=== PATIENT | male | born 1960 | race Caucasian/White ===

== ENCOUNTER 2019-10-29 18:17 | Observation (INO) | payer BC ==
[~2019-10-29] VITALS: Ht 170.2 cm; Wt 99.0 kg
[2019-10-29] MEDS ORDERED: ASPIRIN 81 MG CHEW TAB PO ONE (19:00)
[2019-10-29 19:08] LABS: BASOPHILS % 0.3 % (0.0-1.0); EOSINOPHILS # (AUTO) 0.1 (0.0-0.4); EOSINOPHILS % 0.5 % (0.0-6.0); HEMATOCRIT 44.4 % (38.2-49.6); HEMOGLOBIN 15.1 g/dL (14.0-18.0); LYMPHOCYTES % 21.4 % (18.0-39.1); MEAN CORPUSCULAR HEMOGLOBIN 29.5 pg (28-32); MEAN CORPUSCULAR VOLUME 86.7 fL (81-99); MONOCYTES % 10.6 % (4.4-11.3); NEUTROPHILS # (AUTO) 6.3 (2.1-6.9); NEUTROPHILS % 66.7 % (38.7-80.0); PLATELET COUNT 196 x10e3/uL (140-360); RED BLOOD COUNT 5.12 x10e6/uL (4.3-5.7); RED CELL DISTRIBUTION WIDTH 13.5 % (11.7-14.4)
[2019-10-29 19:21] LABS: ALANINE AMINOTRANSFERASE 37 IU/L (0-55); ALBUMIN 4.1 g/dL (3.5-5.0); ALBUMIN/GLOBULIN RATIO 1.5 (0.8-2.0); ALKALINE PHOSPHATASE 59 IU/L (40-150); ANION GAP 14.8 mmol/L (8-16); BLOOD UREA NITROGEN 16 mg/dL (7-26); BUN/CREATININE RATIO 14 (6-25); CALCIUM 8.9 mg/dL (8.4-10.2); CARBON DIOXIDE 22 mmol/L (22-29); CHLORIDE 107 mmol/L (98-107); CREATINE KINASE 155 IU/L (30-200); CREATININE, SERUM 1.12 mg/dL (0.72-1.25); EST GLOMERULAR FILTRATION RATE > 60 ML/MIN (60-); GLUCOSE 84 mg/dL (74-118); POTASSIUM 3.8 mmol/L (3.5-5.1); SODIUM 140 mmol/L (136-145)
[2019-10-29 19:22] LABS: INR 0.97; PARTIAL THROMBOPLASTIN TIME 27.6 seconds (23.8-35.5); PROTHROMBIN TIME 13.5 seconds (11.9-14.5)
--- NOTE | 2019-10-29 20:21 | Diagnostic Imaging Report ---
EXAMINATION: CHEST SINGLE (PORTABLE) INDICATION: ^CP ^[id number] ^1999 COMPARISON: None FINDINGS: AP view TUBES and LINES: None. LUNGS: Lungs are well inflated. Mild left basilar airspace opacities. PLEURA: No pleural effusion or pneumothorax. HEART AND MEDIASTINUM: The cardiomediastinal silhouette is unremarkable. BONES AND SOFT TISSUES: No acute osseous lesion. Soft tissues are unremarkable. UPPER ABDOMEN: No free air under the diaphragm. IMPRESSION: Mild left basilar airspace opacities, representing atelectasis and/or pneumonia in the appropriate clinical context. Signed by: Dr. Rikki Moran MD on 10/29/2019 8:17 PM
--- NOTE | 2019-10-29 20:44 | Emergency Department Note ---
History of Present Illnes History of Present Illness Chief Complaint: Chest Pain History of Present Illness This is a 58 year old male presents with complaint of intermittent chest pain that started at 2 PM today. Scribes pain is substernal doesn't move doesn't radiate. States first episode of pain lasted about 30 minutes and went away patient then fell asleep taken out woke up again about 4:30 in the afternoon pain returned. Pain resolving and upon arrival here to ER. Denies any other symptoms denies diaphoresis shortness of breath cough fever.. Historian: Patient Arrival Mode: Car Onset (how long ago): hour(s) (6) Location: substernal Quality: pain Radiation: Reports non-radiation Severity: moderate Onset quality: sudden Duration (how long): hour(s) (6) Progression: resolved Chronicity: new Context: Denies recent illness Relieving factors: none Exacerbating factors: none Associated symptoms: Reports denies other symptoms Risk factors: htn, fam hx heart disease Past Medical/Family History Physician Review I have reviewed the patient's past medical and family history. Any updates have been documented here. Past Medical History Recent Fever: No Clinical Suspicion of Infectio: No New/Unexplained Change in Ment: No Past Medical History: Hypertension, Cancer, Kidney Stones Other Medical History: lymphedema Past Surgical History: Appendectomy Social History Smoking Cessation: Former smoker (quit 30 years ago) Alcohol Use: Occasional Any Illegal Drug Use: No Family History Family history of heart diseas: Yes Other family history htn Review of Systems Review of Systems Constitutional: Reports no symptoms EENTM: Reports no symptoms Cardiovascular: Reports as per HPI Respiratory: Reports no symptoms Gastrointestinal: Reports no symptoms Genitourinary: Reports no symptoms Musculoskeletal: Reports no symptoms Integumentary: Reports no symptoms Neurological: Reports no symptoms Psychological: Reports no symptoms Endocrine: Reports no symptoms Hematological/Lymphatic: Reports no symptoms Physical Exam Related Data Allergies: Coded Allergies: codeine (Verified Allergy, Unknown, 10/29/19) Triage Vital Signs Vital Signs Date Time Temp Pulse Resp B/P (MAP) Pulse Ox O2 Delivery O2 Flow Rate FiO2 10/29/19 18:37 98.1 72 16 120/77 98 Vital signs reviewed: Yes Physical Exam CONSTITUTIONAL Constitutional: Present well-developed, Present well-nourished HENT HENT: Present normocephalic, Present atraumatic, Present oropharynx clear/moist, Present nose normal HENT L/R: Present left ext ear normal, Present right ext ear normal EYES Eyes: Reports PERRL, Reports conjunctivae normal NECK Neck: Present ROM normal PULMONARY Pulmonary: Present effort normal, Present breath sounds normal CARDIOVASCULAR Cardiovascular: Present regular rhythm, Present heart sounds normal, Present capillary refill normal, Present normal rate GASTROINTESTINAL Abdominal: Present soft, Present nontender, Present bowel sounds normal GENITOURINARY Genitourinary: Present exam deferred SKIN Skin: Present warm, Present dry MUSCULOSKELETAL Musculoskeletal: Present ROM normal NEUROLOGICAL Neurological: Present alert, Present oriented x 3, Present no gross motor or sensory deficits PSYCHOLOGICAL Psychological: Present mood/affect normal, Present judgement normal Results Laboratory Result Diagram: 10/29/19185210/29/191852 Laboratory Laboratory Tests Test 10/29/19 18:53 White Blood Count 9.41 x10e3/uL (4.8-10.8) Red Blood Count 5.12 x10e6/uL (4.3-5.7) Hemoglobin 15.1 g/dL (14.0-18.0) Hematocrit 44.4 % (38.2-49.6) Mean Corpuscular Volume 86.7 fL (81-99) Mean Corpuscular Hemoglobin 29.5 pg (28-32) Mean Corpuscular Hemoglobin Concent 34.0 g/dL (31-35) Red Cell Distribution Width 13.5 % (11.7-14.4) Platelet Count 196 x10e3/uL (140-360) Neutrophils (%) (Auto) 66.7 % (38.7-80.0) Lymphocytes (%) (Auto) 21.4 % (18.0-39.1) Monocytes (%) (Auto) 10.6 % (4.4-11.3) Eosinophils (%) (Auto) 0.5 % (0.0-6.0) Basophils (%) (Auto) 0.3 % (0.0-1.0) Neutrophils # (Auto) 6.3 (2.1-6.9) Lymphocytes # (Auto) 2.0 (1.0-3.2) Monocytes # (Auto) 1.0 (0.2-0.8) Eosinophils # (Auto) 0.1 (0.0-0.4) Basophils # (Auto) 0.0 (0.0-0.1) Absolute Immature Granulocyte (auto 0.05 x10e3/uL (0-0.1) Prothrombin Time 13.5 seconds (11.9-14.5) Prothromb Time International Ratio 0.97 Activated Partial Thromboplast Time 27.6 seconds (23.8-35.5) Sodium Level 140 mmol/L (136-145) Potassium Level 3.8 mmol/L (3.5-5.1) Chloride Level 107 mmol/L (98-107) Carbon Dioxide Level 22 mmol/L (22-29) Anion Gap 14.8 mmol/L (8-16) Blood Urea Nitrogen 16 mg/dL (7-26) Creatinine 1.12 mg/dL (0.72-1.25) Estimat Glomerular Filtration Rate > 60 ML/MIN (60-) BUN/Creatinine Ratio 14 (6-25) Glucose Level 84 mg/dL (74-118) Calcium Level 8.9 mg/dL (8.4-10.2) Magnesium Level 2.0 MG/DL (1.3-2.1) Total Bilirubin 0.4 mg/dL (0.2-1.2) Aspartate Amino Transf (AST/SGOT) 21 IU/L (5-34) Alanine Aminotransferase (ALT/SGPT) 37 IU/L (0-55) Alkaline Phosphatase 59 IU/L (40-150) Creatine Kinase 155 IU/L (30-200) Creatine Kinase MB 2.30 ng/mL (0-5.0) Troponin I 0.006 ng/mL (0-0.300) B-Type Natriuretic Peptide < 10.0 pg/mL (0-100) Total Protein 6.9 g/dL (6.5-8.1) Albumin 4.1 g/dL (3.5-5.0) Globulin 2.8 g/dL (2.3-3.5) Albumin/Globulin Ratio 1.5 (0.8-2.0) Lab results reviewed: Yes Imaging Imaging results reviewed: Yes Impressions Procedure: [id number] DX/CHEST SINGLE (PORTABLE) Exam Date: 10/29/19 Exam Time: 1999 REPORT STATUS: Signed EXAMINATION: CHEST SINGLE (PORTABLE) INDICATION: ^CP ^[id number] ^1999 COMPARISON: None FINDINGS: AP view TUBES and LINES: None. LUNGS: Lungs are well inflated. Mild left basilar airspace opacities. PLEURA: No pleural effusion or pneumothorax. HEART AND MEDIASTINUM: The cardiomediastinal silhouette is unremarkable. BONES AND SOFT TISSUES: No acute osseous lesion. Soft tissues are unremarkable. UPPER ABDOMEN: No free air under the diaphragm. IMPRESSION: Mild left basilar airspace opacities, representing atelectasis and/or pneumonia in the appropriate clinical context. Signed by: Dr. Rikki Moran MD on 10/29/2019 8:17 PM Procedures 12 Lead ECG Interpretation ECG Interpretation : ECG: ECG 1 Date: Oct 29, 2019 Time: 19:02 Rhythm: sinus rhythm Rate: normal BPM: 77 QRS axis: normal ST segments normal: Yes T waves normal: Yes Other findings: no other findings Clinical Impression: normal ECG Assessment & Plan Medical Decision Making MDM Patient presents with intermittent chest pain since 2 PM. CBC, CMP, cardiac enzymes, EKG, chest x-ray, ordered to eval for myocardial infarction, arrhythmia, electrolyte abnormality, pneumonia, pulmonary edema. Patient found to have a left basilar opacity that could be atelectasis versus pneumonia. Eyes cough fever chills. I spoke with Dr. Graham patient admitted to observation for cardiac rule out and pneumonia. Patient started on Rocephin and Zithromax. Patient's Covid 19 test is pending at this time. Assessment & Plan Final Impression: (1) Chest pain (2) Pneumonia Depart Disposition: ADMITTED Last Vital Signs Date Time Temp Pulse Resp B/P (MAP) Pulse Ox O2 Delivery O2 Flow Rate FiO2 10/29/19 18:37 98.1 72 16 120/77 98 Medications in the ED Aspirin 81 mg PRN ONCE PO ; Start 10/29/19 at 19:00; Stop 10/29/19 at 19:01; Status DC AMY TAYLOR MD Oct 29, 2019 20:44
[2019-10-29] MEDS ORDERED: CEFTRIAXONE SOD 1 GM/NS 50 ML 50 ML IV SCH (20:45)
[2019-10-29] MEDS ORDERED: AZITHROMYCIN 500MG/NS 250 ML 250 ML IV SCH (20:45)
[2019-10-29] MEDS ORDERED: ACETAMINOPHEN 325 MG TAB PO PRN (21:00)
[2019-10-29 22:18] LABS: CLARITY,URINE CLEAR (CLEAR); COLOR,URINE YELLOW (YELLOW)
[2019-10-29 22:19] LABS: BILIRUBIN,URINE NEGATIVE (NEGATIVE); KETONES,URINE NEGATIVE (NEGATIVE); LEUKOCYTE ESTERASE ,URINE NEGATIVE (NEGATIVE); NITRITE,URINE NEGATIVE (NEGATIVE); PROTEIN,URINE DIPSTICK NEGATIVE (NEGATIVE); URINE UROBILINOGEN 0.2 mg/dL (0.2 - 1)
[2019-10-29 22:25] LABS: WBC,URINE (MAN) 0-5 /HPF (0-5)
[2019-10-29 22:26] LABS: BACTERIA,URINE FEW /HPF; CALCIUM OXALATE CRYSTALS,UR MANY (FEW); EPITHELIAL CELLS,URINE FEW /LPF
[2019-10-29] MEDS: SODIUM CHLORIDE 0.9% 1000ML 1,000 ML IV SCH (23:18)
[2019-10-30] VITALS (7 sets, daily range): BP systolic 116–133; BP diastolic 75–80
--- NOTE | 2019-10-30 02:38 | NUR ---
patient is a new admit that arrived via stretcher. patient is awake and talking. tele is on patient. denies pain or discomfort. patient has been transferred into the bed. bed is in the lowest position and call light is within reach. will continue to monitor patient.
[2019-10-30] MEDS ORDERED: PEPCID40 MG PO (03:04)
[2019-10-30] MEDS ORDERED: CRESTOR10 MG PO (03:04)
[2019-10-30] MEDS ORDERED: MICARDIS80 MG PO (03:04)
[2019-10-30 04:41] LABS: CREATINE KINASE 136 IU/L (30-200)
--- NOTE | 2019-10-30 06:07 | NUR ---
H&P cc: sob/cp HPI: 58M, PCP , developed sob/CP. Found to have PNA. PMH: HTN, HLD,prostate cancer 07/2018 s/p resection, hx cigs, urinary stones, GERD PSHx: prostate resection, lithotripsy Allergies; see emr FH/SH; ; hx cigs; meds; see MAR ROS: no f/c/s/N/V/D/skin rash/dizziness/confusion/BOURGEOIS/vision changes v/s; revd PE tired appearing anicteric ns1s2 good bs soft nt nd no e/t skin dry n. affect a&ox3; blackmon labs/meds: revd A/P: 58yoM Left PNA- iv abx; antitussives Calcium oxalate urinary stone- must increase fluid intake Atypical cp- Tn neg x2; check lipids; add ASA Obesity- screen for DM BMI 34- as above GERD- cont home med HTN- cont micardis HLD- cont statin Prop; scd; pepcip dispo: f/u labs Alcon Graham MD, PhD.
[2019-10-30] MEDS ORDERED: ONDANSETRON HCL INJ 2MG/ML 2ML 2 MG/ML VIAL IV PRN (06:15)
[2019-10-30] MEDS ORDERED: DOCUSATE SODIUM 100 MG CAP PO PRN (06:15)
[2019-10-30] MEDS ORDERED: ZOLPIDEM TARTRATE 5 MG TAB PO PRN (06:15)
--- NOTE | 2019-10-30 07:03 | NUR ---
report given to day nurse. patient is resting comfortably in the bed. bed is in the lowest position and call light is within reach.
--- NOTE | 2019-10-30 07:06 | NUR ---
report given to day nurse. patient is resting comfortably in the bed. bed is in the lowest position and call light is within reach.
[2019-10-30 08:21] LABS: CREATINE KINASE 137 IU/L (30-200)
[2019-10-30 08:42] LABS: CHOL/HDL RATIO 2.2 (3.9-4.7)
[2019-10-30] MEDS ORDERED: ASPIRIN 325 MG TAB PO SCH (09:00)
[2019-10-30] MEDS ORDERED: SIMVASTATIN 40 MG TAB PO SCH (09:00)
[2019-10-30] MEDS: SODIUM CHLORIDE 0.9% 1000ML 1,000 ML IV SCH ×2 (09:21→14:44)
[2019-10-30] MEDS: BENZONATATE 100 MG CAP PO SCH ×2 (09:22→15:06)
--- NOTE | 2019-10-30 09:50 | NUR ---
Pt. expressed no spiritual or emotional concerns at this time. Integration Software Developer provided hospitality and information on how to reach operations supervisor chemical cleaning, if needed. No need to follow at this time. CHALO CORBETT Integration Software Developer Spiritual Care Department O: [phone]
[2019-10-30] MEDS ORDERED: ASPIRIN81 MG PO (16:08)
[2019-10-30] MEDS ORDERED: ZITHROMAX500 MG PO (16:08)
[2019-10-30] MEDS ORDERED: PEPCID20 MG PO (16:08)
--- NOTE | 2019-10-30 16:14 | NUR ---
D/C summary Principal Dx: Left PNA- iv abx; antitussives Calcium oxalate urinary stone- must increase fluid intake Atypical cp- Tn neg x2; check lipids; add ASA Secondary dx: Obesity- screen for DM= Negative BMI 34- as above GERD- cont home med HTN- cont micardis HLD- cont statin Prop; scd; pepcip dispo: f/u labs Pt demands to go home; Cardiac enzymes negative; currently asymptomatic; agrees to f/u with PCP in 2 days and see a hospice music therapist for outpt stress test PCP 2-3 days [place] in 2-4 days for outpt stress test stable d/c>35mins d/c home with ASA and pepcid Alcon Graham MD, PhD.
--- NOTE | 2019-10-30 19:58 | NUR ---
Patient discharged home via private auto, Patient in stable condition. Vital signs WNL.
[2019-10-30] MEDS ORDERED: SIMVASTATIN 20 MG TAB PO SCH (21:00)
[2019-10-30] MEDS ORDERED: FAMOTIDINE 20 MG TAB PO SCH (21:00)
[2019-10-30] MEDS ORDERED: TELMISARTAN 40 MG TAB PO SCH (21:00)
== END 2019-10-30 19:55 | disposition home or self-care (01) ==
LOC: ER 18:17 → ERHOLD 20:56 → MED/SURG2 10-30 02:17
PROVIDERS: ADMIT Internal Medicine; ATTEND Internal Medicine
DX: J18.9 Pneumonia, unspecified organism (principal); R07.89 Other chest pain; I10 Essential (primary) hypertension; E78.5 Hyperlipidemia, unspecified; E66.9 Obesity, unspecified; Z68.34 Body mass index [BMI] 34.0-34.9, adult; N20.9 Urinary calculus, unspecified; Z11.59 Encounter for screening for other viral diseases
CPT/HCPCS: 36415 ×2; 71045; 80053; 80061; 81001; 82550 ×2; 82553 ×2; 83036; 83735; 83880; 84484 ×2; 85025; 85610; 85730; 87040; 87635; 93005; 97161; 99284; G0378 ×2; J0456; J0696; J7030 ×2